=== PATIENT | male | born 1980 | race African-American/Black ===

== ENCOUNTER 2016-11-10 17:17 | Emergency (ER) | payer OTHER ==
[~2016-11-10] VITALS: Ht 170.2 cm; Wt 64.2 kg
[~2016-11-10 17:17] MED LIST: BACTRIM,SEPT1 TABLET PO; DOXYCYCLINE HY100 MG PO; VALTREX1000 MG PO
[2016-11-10] MEDS ORDERED: KEFLEX500 MG PO (20:07)
[2016-11-10] MEDS ORDERED: MOTRIN800 MG PO (20:10)
[2016-11-10 20:16] VITALS: BP 100/65
== END 2016-11-10 20:16 | disposition home or self-care (01) ==
LOC: EXP 17:17 → EME 17:17 → EXP 20:16
DX: M79.89 Other specified soft tissue disorders (principal); L08.9 Local infection of the skin and subcutaneous tissue, unspecified
CPT/HCPCS: 73130; 99281; 99284

== ENCOUNTER 2016-12-01 07:25 | Emergency (ER) | payer OTHER ==
[~2016-12-01] VITALS: Ht 170.2 cm; Wt 61.0 kg
[~2016-12-01 07:25] MED LIST changes: +KEFLEX500 MG PO; +MOTRIN800 MG PO
[2016-12-01 08:28] LABS: HEMATOCRIT 40.6 % (38.0-50.0); MCH 31.9 PG (29.0-34.0); MEAN PLAT.VOLUME 10.9 uM^3 (9.0-12.4); PLATELET COUNT 214 K/uL (156-360); RBC DIS.WIDTH-CV 13.7 % (11.8-14.6); RBC DIS.WIDTH-SD 45.8 % (39-53); RED BLOOD COUNT 4.32 M/uL (4.00-5.50); WHITE BLOOD COUNT 4.9 K/uL (4.1-10.2)
[2016-12-01 08:30] LABS: BASOPHIL COUNT 0.1 K/uL (0-0.1); EOSINOPHIL (%) 5.1 % (0-5); EOSINOPHIL COUNT 0.3 K/uL (0-0.3); LYMPHOCYTE COUNT 1.8 K/uL (1.0-2.8); MONOCYTE (%) 11.3 % (3-12); MONOCYTE COUNT 0.6 K/uL (0-0.8); NEUTROPHIL (%) 46.2 % (45-76); NEUTROPHIL COUNT 2.2 K/uL (1.8-6.4)
[2016-12-01 08:35] LABS: CHLORIDE 107 mEq/L (99-109); POTASSIUM 4.3 mEq/L (3.7-5.4); SODIUM 143 mEq/L (136-147)
[2016-12-01 08:37] LABS: GLUCOSE 68 mg/dL (70-99)
[2016-12-01 08:39] LABS: ANION GAP 13 MEQ/L (2-14)
[2016-12-01 08:41] LABS: GFR ESTIMATE (CALCULATED) > 59 mL/min/
[2016-12-01 08:42] LABS: UREA NITROGEN (BUN) 16 mg/dL (9-23)
[2016-12-01] MEDS ORDERED: ZOFRAN ODT8 MG PO (10:18)
[2016-12-01 10:27] LABS: ADD MIUA? YES; BILIRUBIN NEGATIVE; BLOOD SMALL; COLOR YELLOW ((YELLOW)); GLUCOSE (STRIP) NEGATIVE; KETONES NEGATIVE; LEUKOCYTES NEGATIVE; NITRITE NEGATIVE; PH, URINE 5.5 (5-8); PROTEIN (STRIP) TRACE; SPECIFIC GRAVITY 1.028 (1.000-1.030); UROBILINOGEN 0.2 MG/DL (0.2-1.0)
[2016-12-01 10:47] LABS: BACTERIA NONE SEEN; CASTS NONE SEEN /LPF; CRYSTALS NONE SEEN; EPITHELIAL CELLS RARE; MUCUS NONE SEEN; PATHOLOGICAL CAST NONE SEEN; RED BLOOD CELLS 0-5 /HPF (0-5); SMALL ROUND CELL NONE SEEN; WHITE BLOOD CELLS 0-5 /HPF (0-5); YEAST-LIKE CELL NONE SEEN
[2016-12-01 11:29] VITALS: BP 90/59
== END 2016-12-01 11:37 | disposition home or self-care (01) ==
LOC: EME 07:25
PROVIDERS: Physician Assistant
DX: R11.0 Nausea (principal); M79.604 Pain in right leg; M79.605 Pain in left leg; F17.200 Nicotine dependence, unspecified, uncomplicated
CPT/HCPCS: 80048; 81003; 85025; 99281; 99284; J2765; J7040